=== PATIENT | male | born 1960 | race Caucasian/White ===

== ENCOUNTER 2017-06-24 17:15 | Emergency (ER) | payer OTHER ==
[~2017-06-24] VITALS: Ht 166.4 cm; Wt 82.6 kg
[~2017-06-24 17:15] MED LIST: AMOXIL 875 MG875 MG PO; ANTIVERT 25MG #1 PAC PO; EXFORGE 5 MG-321 TAB PO; LABETALOL HYDR200 MG PO
[2017-06-24 17:50] VITALS: BP 156/93
--- NOTE | 2017-06-24 18:21 | ED GENERAL ADULT ---
History of Present Illness General Chief Complaint: General Adult Stated Complaint: LOWER EXTREMITY SWELLING Source: patient Exam Limitations: no limitations Vital Signs & Intake/Output Vital Signs & Intake/Output Vital Signs Date Time Temp Pulse Resp B/P B/P Pulse O2 O2 Flow FiO2 Mean Ox Delivery Rate 06/24 1750 97.6 70 18 156/93 97 Room Air Allergies Coded Allergies: NO KNOWN ALLERGIES (02/09/15) Reconcile Medications AMLODIPINE/VALSARTAN (Exforge 5-320 MG Tablet) 1 TAB TAB 1 TAB PO DAILY BP ( Reported) Amoxicillin (Amoxil 875 MG Tablets) 875 MG TAB 1 TAB PO BID cyst LABETALOL HCL (Labetalol Hydrochloride) 200 MG TAB 1 TAB PO BID BP (Reported) Meclizine (Antivert) 25 MG PAC 1 TAB PO Q8P PRN dizziness Triage Note: PT STATES HE HAS BILAT LOWER EXT EDEMA THAT BEGAN A FEW WEEKS AGO. PT CALLED PCP BUT CAN'T GET INTO THE DR. UNTIL NEXT WEEK. Triage Nurses Notes Reviewed? yes Onset: Abrupt Duration: day(s): Timing: recent history HPI: 06/24/17 6:30 PM 57-year-old man presents to the emergency department complaining of bilateral lower extremity swelling. He states over the past several days she's had swelling to the lower extremities. He denies any chest pain or shortness of breath. The onset of the symptoms was abrupt, the duration has been several days. The severity is significant as his symptoms required him to come to the emergency department for care. The patient states the swelling is been progressive really over the past several weeks but seems to convert worse over the past several days. It is better when he wakes up in the morning, worse at the end of the day. (Dario Reyes DO) Past History Travel History Traveled to [place] past 21 day No Medical History Any Pertinent Medical History? see below for history Cardiovascular: hypertension Musculoskeletal: disk herniation Surgical History Surgical History: non-contributory Psychosocial History What is your primary language [place] Citizen Tobacco Use: Never used ETOH Use: heavy use Illicit Drug Use: denies illicit drug use Family History Hx Contributory? No (Dario Reyes DO) Review of Systems Review of Systems Constitutional: Denies: fever. EENTM: Denies: visual changes. Respiratory: Denies: short of breath. Cardiovascular: Denies: chest pain. GI: Denies: abdominal pain. Genitourinary: Reports: no symptoms. Musculoskeletal: Reports: see HPI. Skin: Reports: no symptoms. Neurological/Psychological: Reports: no symptoms. Hematologic/Endocrine: Reports: no symptoms. (Dario Reyes DO) Physical Exam Physical Exam General Appearance: well developed/nourished, alert, awake, anxious, mild distress Head: atraumatic, normal appearance Eyes: Bilateral: normal appearance, PERRL, EOMI. Ears, Nose, Throat: normal pharynx, normal ENT inspection Neck: normal inspection, supple Respiratory: normal breath sounds, chest non-tender, no respiratory distress Cardiovascular: regular rate/rhythm Peripheral Pulses: 4+ dorsalis pedis (R), 4+ dorsalis pedis (L) Gastrointestinal: soft, non-tender Back: normal range of motion Extremities: pedal edema Neurologic/Psych: no motor/sensory deficits, awake, alert, oriented x 3 Skin: intact, normal color, warm/dry Core Measures ACS in differential dx? No CVA/TIA Diagnosis: No Sepsis Present: No Sepsis Focused Exam Completed? No (Dario Reyes DO) Progress Differential Diagnoses I considered the following diagnoses in my evaluation of the patient: [DVT, dependent edema, cellulitis, right sided heart failure] Plan of Care: Orders Procedure Date/time Status COMPREHENSIVE METABOLIC PANEL 06/24 175 Complete CBC WITHOUT DIFFERENTIAL 06/24 1751 Complete B-TYPE NATRIURETIC PEP (BNP) 06/24 175 Complete Laboratory Tests 06/24/17 1823: Anion Gap 9, Estimated GFR > 60, BUN/Creatinine Ratio 16.7, Glucose 89, Calcium 9.3, Total Bilirubin 0.8, AST 54, ALT 47, Alkaline Phosphatase 86, Pro-B- Natriuretic Pept 219 H, Total Protein 6.6, Albumin 4.0, Globulin 2.6, Albumin/ Globulin Ratio 1.5, CBC w Diff NO MAN DIFF REQ, RBC 4.61 L, MCV 98.1 H, MCH 33.3 H, MCHC 33.9, RDW 12.9, MPV 6.6 L, Gran % 75.6 H, Lymphocytes % 16.0 L, Monocytes % 7.6, Eosinophils % 0.5, Basophils % 0.3, Absolute Granulocytes 6.0, Absolute Lymphocytes 1.3, Absolute Monocytes 0.6, Absolute Eosinophils 0, Absolute Basophils 0 Initial ED EKG: none (Dario Reyes DO) Comments: Patient has been updated on lab and ultrasound results. Questions have been answered. (Ulises HARRIS,Pascual Chester) Departure Departure Condition: Stable Clinical Impression Primary Impression: Dependent edema Referrals: Unknown (PCP/Family) Departure Forms: Customer Survey General Discharge Information Comments The patient's labs are essentially unremarkable. Age-adjusted BNP is normal. Ultrasound of the lower extremities is pending. The patient was signed out to Dr. Montgomery at 7 PM. (Dario Reyes DO) Departure Disposition: HOME OR SELF CARE Additional Instructions: TAKE LASIX IN THE MORNING PRESCRIBED FOLLOW UP WITH YOUR DOCOTR EARLY NEXT WEEK FOR REPEAT BLOOD WORK TO CHECK YOUR POTASSIUM SINCE THE LASIX CAN CAUSE YOUR POTASSIUM TO GO DOWN RETURN FOR ANY WORSENING SYMPTOMS OR ANY CONCERNS KEEP YOUR LEGS ELEVATED WHENEVER YOU ARE NOT STANDING Prescriptions: Current Visit Scripts Furosemide (Lasix) 1 TAB PO DAILY #30 TAB (Ulises HARRIS,Pascual Chester) Critical Care Note Critical Care Note Critical Care Time: non-applicable (Dario Reyes DO)
[2017-06-24 18:51] LABS: ABSOLUTE BASOPHIL COUNT 0 /CUMM (0.0-0.2); ABSOLUTE EOSINOPHIL COUNT 0 /CUMM (0.0-0.7); ABSOLUTE LYMPH COUNT 1.3 /CUMM (1.2-3.4); ABSOLUTE MONOCYTE COUNT 0.6 /CUMM (0.10-0.60); BASOPHIL % 0.3 % (0.0-2.0); EOSINOPHIL % 0.5 % (0-5); GRANULOCYTE % 75.6 % (42.2-75.2); HEMATOCRIT 45.2 % (42-52); MEAN CORPUSCULAR HGB 33.3 PG (27.0-31.0); MEAN CORPUSCULAR HGB CONC 33.9 G/DL (33.0-37.0); MEAN CORPUSCULAR VOLUME 98.1 FL (80.0-94.0); MEAN PLATELET VOLUME 6.6 FL (7.4-10.4); PLATELET COUNT 308 /CUMM (130-400); RBC DISTRIBUTION WIDTH 12.9 % (11.5-14.5); RED BLOOD CELL CT 4.61 /CUMM (4.70-6.10)
--- NOTE | 2017-06-24 22:11 | ULTRASOUND REPORT ---
EXAMINATION: US TRIPLEX OF LOWER EXTREMITIES, BILATERAL CLINICAL INFORMATION: Edema. Pain. COMPARISON: None TECHNIQUE: Color-flow triplex imaging with spectral analysis and compression Doppler were performed on the lower extremities. FINDINGS: Respiratory variation, normal compression and augmented flow are noted throughout the lower extremities. The visualized common femoral vein, superficial femoral vein, profunda femoral vein, popliteal vein and midcalf peroneal and posterior tibial venous segments show no evidence of deep venous thrombosis. There is a joint effusion which extends into the popliteal area measuring about 4.4 x 1.4 x 2.7 cm. IMPRESSION: 1. Normal triplex scan without evidence of deep venous thrombosis involving the lower extremities. 2. Joint effusion with popliteal cyst.
[2017-06-24] MEDS ORDERED: LASIX20 M1 PO (22:28)
== END 2017-06-24 23:01 ==
LOC: ERH 17:15
PROVIDERS: Physician Assistant Medical
DX: R60.0 Localized edema (principal); I10 Essential (primary) hypertension; F10.10 Alcohol abuse, uncomplicated
CPT/HCPCS: 93970; J0153